=== PATIENT | male | born 1995 | race Two or more races ===

== ENCOUNTER 2024-05-21 15:13 | Outpatient (AMB) | payer OTHER, SELFPAY ==
--- NOTE | 2024-05-21 13:05 | A.OFFVIS_ITS ---
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 Assembly Supervisor Required: No Accompanied by: Significant Other Allergies No Known Allergies [No Known Allergies*] Allergy (Unverified 12/30/19 19:42) Medication List - Last Reconciled 05/21/24 by Lisa Stone NP acetone (urine) test (Ketone Urine Test strips) prn nausea, vomiting, illness glucose over 250 blood sugar diagnostic (FreeStyle Lite Strips) As directed qid prn sensor failure, confirm glucose blood-glucose meter (FreeStyle Lite Meter kit) As directed blood-glucose sensor (Dexcom G7 Sensor device) As directed insulin degludec (Tresiba FlexTouch U-200 insulin) 42 units (0.21 mL) subcut BEDTIME 30 days insulin lispro 9 units subcut BEDTIME lancets (FreeStyle Lancets) 4 times a day prn sensor failure or to confirm glucose dispense as 32 gauge if avail HPI Comments Details: 29 YO male who is seen in consultation for T1DM at the request of his partner who is an sign language interpreter [place] [facility] [place]. Hgb A1C 05/21/24 10.9% 06/10/23 9.6% Initially diagnosed with T1DM approx at age [age] years old through the ER Was previously followed by [facility] He just started on a Dexcom G7 sensor SENSOR AVERAGE FOR THE LAST 14 DAYS 256 He has a clear pattern of starting off at midnight in the 250s and drops down to 90 by the morning, after breakfast he gradually goes up throughout the day Was initially started on treatment with insulin Current regimen: Lantus 40 units Humalog 9 units 4-5 times daily with meals Reports low sugars: never Family history of T2DM in father Due for eye exam Has recent neuropathy : tingling in both feet last foot exam today does not see podiatry No nephropathy, on doron-inhibitor no urine micro avail 06/10/23 eGFR 123 No lipid profile available Diet: Hasn't seen fitness and wellness manager Weight: stable No diabetes education. PFSH Surgical History (Updated 05/21/24 @ 15:24 by ALEN Ledezma) Hx of tooth extraction Family History (Updated 05/21/24 @ 15:25 by ALEN Ledezma) Mother No problems noted. Father No problems noted. Maternal Aunt History of diabetes mellitus Maternal Grandmother No problems noted. Social History (Updated 05/21/24 @ 15:26 by ALEN Ledezma) Alcohol intake: current Alcohol intake frequency: does not drink Patient Tobacco Use Status: Never used Tobacco Physical Exam Vital Signs: Last Vital Signs Pulse 72 05/21/24 15:16 BP 118/70 05/21/24 15:16 BMI result Body Mass Index 32.4 Absence of Cushingoid features. Absence of acromegalic features. Neck exam reveals nl size thyroid about 15 gms. No thyroid nodules palpable. No carotid bruits present. Lungs CTA. Heart S1 S2, Reg R/R. No M/R/ G. Skin exam reveals absence of vitiligo or acanthosis nigricans. Abdominal exam reveals Soft NT/ND with NA BS. No organomegaly present. Const Other: Absence of Cushingoid features. Absence of acromegalic features. Neck exam reveals nl size thyroid about 15 gms. No thyroid nodules palpable. Heart S1 S2, Reg R/R. No M/R G. Skin exam reveals absence of vitiligo or acanthosis nigricans. Visual exam of foot performed. No ulcerations or open lesions. No inter digit maceration or fissuring. No onychomycosis, no callouses. Sensation intact to monofilament exam. Vibratory sensation is normal with 128 Hz tuning fork. goood cap refill pulses + Neck Other: . Extrem Other: Visual exam of foot performed. No ulcerations or open lesions. No onchomycosis, no callouses.Pulses 2 + distally Sensation intact to monofilament exam. Vibratory sensation sensed is intact with 128 Hz tuning fork Results AMB Hemoglobin A1c AMB Hemoglobin A1c 10.9 % Last Edit by ALEN Ledezma on 05/21/24 15:3 9 Results Reviewed Results Reviewed: Laboratory Last Values Glucose (Clinic) 235 mg/dL (60-115) H 05/21/24 15:30 Hgb A1c (Clinic) 10.9 % (4.0-6.0) H 05/21/24 15:33 Assessment & Plan Assessment & Plan (1) Diabetes mellitus: Code(s): E11.9 - Type 2 diabetes mellitus without complications Plan: 29-year-old diabetic diagnosed in his teens with a history of poor diabetic control on basal bolus insulin. A1c in the office today over 10%. Sensor download shows a clear pattern of starting at midnight in the 250s and gradually going down to 90 by the morning and rising afterwards indicating that Lantus is not lasting 24 hours for this patient. We will change to Tresiba 42 units which should smooth out his numbers. Increase Humalog to 10 units which he takes 4-5 times per day. As we are able to increase the Tresiba we should be able to decrease the Humalog to just mealtime. He will follow up with Ghada Akers RD and Che ALEXANDER. He may be a good candidate to go on a islet insulin pump. We briefly discussed the differences between islet and Omnipod Patient verbalized an understanding of everything we discussed today but was fairly quiet. Glass Che ALEXANDER to assess whether she feels he can handle going on an insulin pump. He did express the fact that he would prefer not to enter carbohydrate g. The patient had an opportunity to ask questions regarding treatment plan. The patient expressed understanding and agreement with the above treatment plan. The patient is aware they should contact our office by phone for worsening glucose readings or for any low blood sugars which may warrant a change in diabetes medication. Compliance is encouraged with medications and any followup testing/consults which may have been ordered. Plan The patient was counseled to achieve a target A1C of 7% (154 avg). Fasting blood sugars should be 90-130 in the morning and less than 180 two hours after meals. Reviewed the relationship between poor diabetic control and the development of complications. Orders: Orders Islet Cell Antibody Scrn/Titer Today E11.9 - Type 2 diabetes mellitus without complications C Peptide Today E11.9 - Type 2 diabetes mellitus without complications Glutamic acid decarboxylase Ab Today E11.9 - Type 2 diabetes mellitus without complications Microalbumin, Random (w Creat) Today E11.9 - Type 2 diabetes mellitus without complications Lipid Panel Today E11.9 - Type 2 diabetes mellitus without complications Creatinine Urine Today E11.9 - Type 2 diabetes mellitus without complications AMB Hemoglobin A1c Today E10.9 - Type 1 diabetes mellitus without complications Medications: New insulin degludec (Tresiba FlexTouch U-200 insulin) 42 units (0.21 mL) subcut BEDTIME 9 mL 6RF 30 days acetone (urine) test (Ketone Urine Test strips) prn nausea, vomiting, illness glucose over 250 25 ea 1RF blood sugar diagnostic (FreeStyle Lite Strips) As directed qid prn sensor failure, confirm glucose 100 ea 2RF lancets (FreeStyle Lancets) 4 times a day prn sensor failure or to confirm glucose dispense as 32 gauge if avail 100 ea 1RF blood-glucose meter (FreeStyle Lite Meter kit) As directed 1 ea 0RF E10.9 - Type 1 diabetes mellitus without complications Coding Level of Care Code New Pt Level 5 (94694) Complex EM visit Add On G2211 Diagnoses Diabetes mellitus E11.9 Time Spent (min) 50 Comment Time spent reviewing labs/provider notes, face to face, chart doc
[2024-05-21 15:16] VITALS: BP 118/70; PULSE 72; BMI 32.4
[2024-05-21 15:34] LABS: Glucose, Whole Blood 235 mg/dL (60-115)
== END 2024-05-21 18:03 | disposition home or self-care (01) ==
PROVIDERS: PCP Family Medicine; Visit Provider Nurse Practitioner Adult Health
DX: E10.9 Type 1 diabetes mellitus without complications (principal); E11.9 Type 2 diabetes mellitus without complications
CPT/HCPCS: 99204; G2211

== ENCOUNTER → 2024-05-21 15:13 | Outpatient (BNVA) | payer OTHER, SELFPAY | PROVIDERS: PCP Family Medicine; Visit Provider Nurse Practitioner Adult Health | DX: E10.9 Type 1 diabetes mellitus without complications (principal); Z79.4 Long term (current) use of insulin | CPT/HCPCS: 82947; 83036; 99202 ==

== ENCOUNTER 2024-07-30 14:55 | Outpatient (AMB) | payer MEDICAID, SELFPAY ==
--- NOTE | 2024-07-30 13:46 | A.OFFVIS_ITS ---
Vital Signs 07/30/24 15:01 Height 5 ft 8 in Weight 220 lb 7.396 oz BMI 33.5 BP 100/80 Blood Pressure Location Rt brachial Position Sitting Pulse 76 Pulse Source Pulse Oximeter Pulse Oximetry (%) 99 Oxygen Delivery Method Room Air Intake Visit Reasons: T1DM Intake Note: Patient presents today for a follow-up on Type 1 Diabetes Mellitus: Last Diabetic eye exam was on: DUE? 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 Hgb A1C 05/21/24 10.9% 06/10/23 9.6%. He was seen as an initial consult 2 months ago and changed from Lantus insulin to Tresiba insulin to smooth out his numbers. Initially diagnosed with T1DM approx at age [age] years old through the ER Was previously followed by [facility] average glucose: 195 14 day continuous glucose sensor report reviewed Glucose Management indicator 8.0 % Time CGM active 97 % TIme in ranges: 25 % very high (above 250) 30 % high (181-250) 43 % in range (70-180] 2 % low (69-55) Less than 1 % very low (below 54) Interpretation of CGMS running overall 40 points above target Was initially started on treatment with insulin Current regimen: Tresiba 42 units Humalog 10 units 4-5 times daily with meals Reports low sugars: never Family history of T2DM in father Due for eye exam Has recent neuropathy : tingling in both feet last foot exam today does not see podiatry No nephropathy, on doron-inhibitor no urine micro avail 06/10/23 eGFR 123 No lipid profile available Diet: Hasn't seen still runner Weight: stable No diabetes education. PFSH Medical History (Updated 08/10/24 @ 15:12 by Lisa Stone NP) Type 1 diabetes mellitus Diabetes Surgical History Hx of tooth extraction Family History Mother No problems noted. Father No problems noted. Maternal Aunt History of diabetes mellitus Maternal Grandmother No problems noted. Social History Alcohol intake: current Alcohol intake frequency: does not drink Patient Tobacco Use Status: Never used Tobacco Physical Exam Vital Signs: Last Vital Signs Pulse 76 07/30/24 15:01 BP 100/80 07/30/24 15:01 Pulse Ox 99 07/30/24 15:01 Oxygen Delivery Method Room Air 07/30/24 15:01 BMI result Body Mass Index 33.5 Const Other: Absence of Cushingoid features. Absence of acromegalic features. Neck exam reveals nl size thyroid about 15 gms. No thyroid nodules palpable. Heart S1 S2, Reg R/R. No M/R G. Skin exam reveals absence of vitiligo or acanthosis nigricans. Visual exam of foot performed. No ulcerations or open lesions. No inter digit maceration or fissuring. No onychomycosis, no callouses. Sensation intact to monofilament exam. Vibratory sensation is normal with 128 Hz tuning fork. Results Reviewed Results Reviewed: Laboratory Last Values Glucose (Clinic) 187 mg/dL (60-115) H 07/30/24 15:07 Assessment & Plan Assessment & Plan (1) Type 1 diabetes mellitus: Code(s): E10.9 - Type 1 diabetes mellitus without complications Category: Medical Plan: Basal bolus insulin was adjusted The patient had an opportunity to ask questions regarding treatment plan. The patient expressed understanding and agreement with the above treatment plan. The patient is aware they should contact our office by phone for worsening glucose readings or for any low blood sugars which may warrant a change in diabetes medication. Compliance is encouraged with medications and any followup testing/consults which may have been ordered. Medications: New insulin lispro before meals 14 units (0.14 mL) subcut TID 15 mL 11RF NS Changed From insulin degludec 42 units (0.21 mL) subcut BEDTIME 30 days 9 mL 6RF To insulin degludec (Tresiba FlexTouch U-200 insulin) 38 units (0.19 mL) subcut BEDTIME 6 mL 6RF 30 days Coding Level of Care Code Est Pt Level 4 (82986) Complex EM visit Add On G2211 Diagnoses Type 1 diabetes mellitus E10.9
[2024-07-30 15:01] VITALS: BP 100/80; PULSE 76; O2SAT 99; BMI 33.5
[2024-07-30 15:13] LABS: Glucose, Whole Blood 187 mg/dL (60-115)
== END 2024-07-30 15:32 | disposition home or self-care (01) ==
PROVIDERS: PCP Family Medicine; Visit Provider Nurse Practitioner Adult Health
DX: E10.9 Type 1 diabetes mellitus without complications (principal)
CPT/HCPCS: 99214

== ENCOUNTER → 2024-07-30 14:55 | Outpatient (BNVA) | payer OTHER, SELFPAY | PROVIDERS: PCP Family Medicine; Visit Provider Nurse Practitioner Adult Health | DX: Z46.81 Encounter for fitting and adjustment of insulin pump (principal); E10.9 Type 1 diabetes mellitus without complications; Z79.4 Long term (current) use of insulin | CPT/HCPCS: 82947; 99212 ==

== ENCOUNTER 2024-08-13 08:36 | Outpatient (REF) | payer MEDICAID, SELFPAY ==
[2024-08-13 10:13] LABS: Cholesterol 174 mg/dL (<200); HDL Cholesterol 56 mg/dL (>40); LDL Cholesterol Calculated 83 mg/dL (<100); Triglycerides 176 mg/dL (<150)
[2024-08-13 10:37] LABS: Creatinine Urine 188.34 mg/dL; Microalbum/Creatinine Ratio Ur 3.7 ug/mg cr (<30)
[2024-08-14 05:44] LABS: C Peptide 0.68 ng/mL (0.80-3.85)
[2024-08-17 20:22] LABS: Glutamic acid decarboxylase Ab 90 IU/mL (<5)
[2024-08-18 08:04] LABS: Islet Cell Antibody Screen NEGATIVE (NEGATIVE)
== END 2024-08-13 08:37 | disposition home or self-care (01) ==
LOC: HO.LAB 08:36
PROVIDERS: PCP Family Medicine; Visit Provider Nurse Practitioner Adult Health
DX: E11.9 Type 2 diabetes mellitus without complications (principal)
CPT/HCPCS: 36415; 80061; 82043; 82570; 84681; 86341

== ENCOUNTER 2024-08-17 13:54 | Outpatient (AMB) | payer OTHER, SELFPAY ==
--- NOTE | 2024-08-17 14:04 | A.OFFVIS_ITS ---
VS Expanded 08/17/24 14:05 08/17/24 14:19 Height 5 ft 8 in 5 ft 8 in Weight 239 lb 3.225 oz 239 lb BMI 36.4 36.3 Intake Visit Reasons: T1DM Allergies No Known Allergies [No Known Allergies*] Allergy (Verified 07/30/24 15:02) Nutrition Presentation Details: Pt presents for MNT for T1DM Pt reports increased appetite, acknowledges increase sugar/carb intake wants to make dietary modifications needs review in reading food labels and definition of macronutrients Breakfast: cereal with milk dinner/lunch: rice/chicken meal snack :chips and similar bedtime: bowl of sugary cereal with whole milk beverages: water, diet soda Reason for consult: initial DM maintenance BS Monitoring Most Recent Diabetes Results: Microalb/Creat Ratio 3.7 ug/mg cr (<30) 08/13/24 Cholesterol 174 mg/dL (<200) 08/13/24 HDL Cholesterol 56 mg/dL (>40) 08/13/24 Triglycerides 176 mg/dL (<150) H 08/13/24 Creatinine 1.03 MG/DL (0.5-1.4) 10/21/18 Blood Urea Nitrogen 12 MG/DL (9-16) 10/21/18 Sodium 139 MMOL/L (135-145) 10/21/18 Potassium 4.0 MMOL/L (3.3-5.1) 10/21/18 Chloride 102 MMOL/L (96-108) 10/21/18 AST 15 U/L (5-37) 10/21/18 ALT 12 U/L (0-40) 10/21/18 Total Protein 7.3 G/DL (6.5-8.0) 10/21/18 Albumin 4.6 G/DL (3.5-5.0) 10/21/18 JAR-Pvcpwje-Ys.Jeor Equation Height: 5 ft 8 in Weight: 239 lb Resting Metabolic Rate: 2029.74 Calculated Activity Level: Sedentary Calories Needed to Maintain Weight: 2435.69 Diagnosis Nutrition problem #1: altered nutrition labs As related to (etiology) #1: diagnosis As evidenced by (sign/symptom) #1: knowledge deficit of diet Monitoring/Goals Nutrition problem monitoring: level of knowledge/skill and glucose, fasting [facility] Medical History (Updated 08/10/24 @ 15:12 by Lisa Stone NP) Type 1 diabetes mellitus Diabetes Surgical History Hx of tooth extraction Family History Mother No problems noted. Father No problems noted. Maternal Aunt History of diabetes mellitus Maternal Grandmother No problems noted. Social History Alcohol intake: current Alcohol intake frequency: does not drink Patient Tobacco Use Status: Never used Tobacco Assessment & Plan Assessment & Plan (1) Type 1 diabetes mellitus: Code(s): E10.9 - Type 1 diabetes mellitus without complications Category: Medical Plan: Wt: 109 Kg ( 09/05 ) Est kcal needs as per MSJ: 2300 (40% carb, 30% protein/fat) Est fluid needs as per 25-30 ml/d: 3300 Est prot per day as per 1 g/kg bw: 110 Recommend fiber intake : 8-10 g per day and gradually increase to 25-28 g per day for women and 35-38 g for men or as tolerated Recommend sodium intake per day : less than 2000 mg Educated patient on: ( R = reviewed V = verbalizes understanding N/R = needs review N/A = not applicable * Food sources of carbohydrate, adequate serving sizes and its role in various health conditions: R * Differences between complex carbohydrates a simple carbohydrates, role of fiber in diet: R * Lean protein sources of foods: R * Differences between types of fats and role in diet (mono on saturated fat fatty acids, saturated fatty acids, trans fats): R V N/R * Food sources of sodium in salt and healthy modifications for heart health in kidney health: R V R/V * Vitamins and minerals: R V N/R * Healthy plate method concept: R * Physical activity: Benefits a precaution: R V N/R * Hypoglycemia protocol (rule of 15): R V N/R * Dietary prevention of Hyperglycemia: R Patient Instructions: Reduce total carbohydrate at bedtime to 45 g carbs - see ideas consisting of less than 45 g carb read labels , serving size and total carbs provided and discussed planning healthy meals pamphlet Coding Level of Care Code Nutr Indiv Intake (60642) Diagnoses Type 1 diabetes mellitus E10.9 Time Spent (min) 30
[2024-08-17 14:05] VITALS: BMI 36.4
[2024-08-17 14:19] VITALS: BMI 36.3
== END 2024-08-17 15:44 | disposition home or self-care (01) ==
LOC: HO.ENCR 13:55
PROVIDERS: PCP Family Medicine; Visit Provider Dietitian, Registered
DX: E10.9 Type 1 diabetes mellitus without complications (principal)

== ENCOUNTER 2024-08-17 13:54 | Outpatient (AMB) | payer MEDICAID, SELFPAY ==
--- NOTE | 2024-08-17 14:54 | MHC.AMDMED ---
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 Name: Laury [phone] Accompanied by: Self / Same As Patient Allergies No Known Allergies [No Known Allergies*] Allergy (Verified 07/30/24 15:02) HPI Comprehensive Diabetes Asmnt Most Recent Diabetes Results: Microalb/Creat Ratio 3.7 ug/mg cr (<30) 08/13/24 Cholesterol 174 mg/dL (<200) 08/13/24 HDL Cholesterol 56 mg/dL (>40) 08/13/24 Triglycerides 176 mg/dL (<150) H 08/13/24 Creatinine 1.03 MG/DL (0.5-1.4) 10/21/18 Blood Urea Nitrogen 12 MG/DL (9-16) 10/21/18 Sodium 139 MMOL/L (135-145) 10/21/18 Potassium 4.0 MMOL/L (3.3-5.1) 10/21/18 Chloride 102 MMOL/L (96-108) 10/21/18 AST 15 U/L (5-37) 10/21/18 ALT 12 U/L (0-40) 10/21/18 Total Protein 7.3 G/DL (6.5-8.0) 10/21/18 Albumin 4.6 G/DL (3.5-5.0) 10/21/18 [facility] Medical History (Updated 08/10/24 @ 15:12 by Lisa Stone NP) Type 1 diabetes mellitus Diabetes Surgical History Hx of tooth extraction Family History Mother No problems noted. Father No problems noted. Maternal Aunt History of diabetes mellitus Maternal Grandmother No problems noted. Social History Alcohol intake: current Alcohol intake frequency: does not drink Patient Tobacco Use Status: Never used Tobacco Assessment & Plan Assessment & Plan (1) Type 1 diabetes mellitus: Code(s): E10.9 - Type 1 diabetes mellitus without complications Plan: Pump Assessment: Type of DM: Type 1 Dx at age: 16y/o Previous DKA:At Dx Current Insulin Rx: MDI Patient takes insulin as prescribed:yes Patient? checks BG Dexcom G7 Downloaded meter today? yes Patient? reports glycemic control as: poor Most recent Hgb A1C: 10.9% Frequency of low BG: a few times a week Low BG treatment: Skittles Frequency of high BG: daily Does patient check Ketones? no Has pt been on a pump in the past? no Reviewed insulin pump basics today with Patient. Explained pros and cons of insulin pumps. Showed pt various pumps, infusion sets, and cgms currently available. Reviewed need to wear pump 24/ and need to change infusion set every 3 days. Also stressed importance of frequent BG checks, 4x daily minimum or use pump that is integrated with CGM.? TDD:116 units Patient demonstrated motivation for continued insulin pump education and understands the need to complete education prior to starting insulin pump for best outcome. Will follow up for continued education. Patient is considering T slim, iLet or Omnipod. Reviewed the following information regarding ketone testing: Patient given ketone testing handout in [employer] [facility]? for High Blood Sugar and When to Test for Ketones Hyperglycemia is the technical term for high blood glucose (blood sugar). High blood sugar happens when the body has too little insulin or when the body can't use insulin properly. What causes hyperglycemia? A number of things can cause hyperglycemia: If you have type 1, you may not have given yourself enough insulin. ? If you have type 2, your body may have enough insulin, but it is not as effective as it should be. You ate more than planned or exercised less than planned. You have stress from an illness, such as a cold or flu. You have other stress, such as family conflicts or school or dating problems. How to lower your blood sugar level. ? Take medications as directed by physician. ? Drink extra water or noncaffeinated, nonsugared drinks to prevented hydration. ? Exercise if you are not sick However, if your blood sugar is above 250 mg/dl, check your urine for ketones. If you have ketones, do not exercise Exercising when ketones are present may make your blood sugar level go even higher. You'll need to work with your doctor to find the safest way for you to lower your blood sugar level. Regularly check blood sugar or urine for sugar and acetone during illness. Diabetic ketoacidosis (DKA) Is serious condition that can lead to diabetic coma (passing out for a long time) or even . When your cells don't get the glucose they need for energy, your body begins to burn fat for energy, which produces ketones. Ketones are chemicals that the body creates when it breaks down fat to use for energy. The body does this when it doesn?t have enough insulin to use glucose, the body?s normal source of energy. When ketones build up in the blood, they make it more acidic. They are a warning sign that your diabetes is out of control or that you are getting sick. Symptoms of Diabetic Ketoacidosis (DKA) ? DKA usually develops slowly. But when vomiting occurs, this life-threatening condition can develop in a few hours. Early symptoms include the following: ? Thirst or a very dry mouth ? Frequent urination ? High blood glucose (blood sugar) levels ? High levels of ketones in the urine ? Then, other symptoms appear: ? Constantly feeling tired ? Dry or flushed skin ? Nausea, vomiting, or abdominal pain ? (Vomiting can be caused by many illnesses, not just ketoacidosis. If vomiting continues for more than 2 hours, contact your health care provider.) ? Difficulty breathing ? Fruity odor on breath ? A hard time paying attention, or confusion When should you test for ketones? It is advisable to check for ketones under the following conditions when: Your blood glucose is higher than 250mg/dl. Feeling nauseated, throwing up, or have pains in your abdominal region. Have a cold or flu. Have general body fatigue. Feel thirsty or have a very dry mouth. Have flushed skin. Have a fruity breath or a hard time breathing. You feel perplexed or in fog. How to Test Urine for Ketones You can detect ketones with a simple urine test using a test strip, similar to a blood testing strip. Ask your health care provider when and how you should test for ketones. Many experts advise to check your urine for ketones when your blood glucose is more than 250 mg/dl. When you are ill (when you have a cold or the flu, for example), check for ketones every 4 to 6 hours. And check every 4 to 6 hours when your blood sugar is more than 250 mg/dl. Also, check for ketones when you have any symptoms of DKA. How to lower your blood sugar level. ? Take medications as directed by physician. ? Drink extra water or noncaffeinated, nonsugared drinks to prevented hydration. ? Exercise if you are not sick However, if your blood sugar is above 250 mg/dl, check your urine for ketones. If you have ketones, do not exercise Exercising when ketones are present may make your blood sugar level go even higher. You'll need to work with your doctor to find the safest way for you to lower your blood sugar level. Regularly check blood sugar or urine for sugar and acetone during illness Portions of this note were created using voice recognition software, please excuse any words or phrases that may have been misinterpreted. Coding Level of Care Code Est Pt Level 1 (43973) Diagnoses Type 1 diabetes mellitus E10.9
== END 2024-08-17 15:43 | disposition home or self-care (01) ==
LOC: HO.ENCR 13:55
PROVIDERS: PCP Family Medicine; Visit Provider Registered Nurse Diabetes Educator
DX: E10.9 Type 1 diabetes mellitus without complications (principal)

== ENCOUNTER → 2024-08-17 13:54 | Outpatient (BNVA) | payer MEDICAID, SELFPAY | PROVIDERS: PCP Family Medicine; Visit Provider Registered Nurse Diabetes Educator | DX: E10.9 Type 1 diabetes mellitus without complications (principal) | CPT/HCPCS: 97802; 99211 ==

== ENCOUNTER 2024-09-15 14:22 | Outpatient (AMB) | payer MEDICAID, SELFPAY ==
--- NOTE | 2024-09-15 12:17 | A.OFFVIS_ITS ---
Vital Signs 09/15/24 14:30 Height 5 ft 8 in Weight 235 lb 14.314 oz BMI 35.9 BP 116/70 Blood Pressure Location Rt brachial Position Sitting Pulse 76 Pulse Source Pulse Oximeter Pulse Oximetry (%) 96 Oxygen Delivery Method Room Air Intake Visit Reasons: T1DM Intake Note: Patient presents today for a follow-up on Type 1 Diabetes Mellitus: Last Diabetic eye exam was on: DUE Last Podiatry exam was on: Patient does not see a Bat Boy/Girl Most recent HbA1c: 7.7%, 09/15/2024 Random Glucose- 159 mg/dL, Today Room Service Food Server Required: No Accompanied by: Self / Same As Patient Allergies No Known Allergies [No Known Allergies*] Allergy (Verified 09/15/24 14:29) HPI Comments Details: 29 YO male who is seen in f/u for T1DM. Hgb A1C 09/15/24 %,05/21/24 10.9% 06/10/23 9.6%. He was seen as an initial consult May 2024 and he was changed from Lantus insulin to Tresiba insulin to smooth out his numbers. He has met with Che ALEXANDER to discuss going on a pump. He is interested in Omnipod. He has had 1 session with the Ghada Akers RD. He needs additional pre pump training prior to ordering pump Labs 08/13/2024 confirmed type 1 C-peptide 0.68 Gada 90 neg islet antibody His partner Raquel is an septic cleaner at [facility] [place] Initially diagnosed with T1DM approx at age [age] years old through the ER Was [facility] Was initially started on treatment with insulin Current regimen: Tresiba 45 units Humalog 11 units three times daily with meals Dexcom average glucose: 185 14 day continuous glucose monitor report reviewed Glucose Managment indicator 7.7 % TIme in ranges: 17 % very high (above 250) 36 % high ?(181-250) 77 % in range ?(70-180] 1 % low (69-55) Less than 1 % ?very low (below 54) Interpretation ; some readings around 03:00 and 06:00 just below 70, some postprandial highs after lunch and supper Reports low sugars: in the am Family history of T2DM in father Due for eye exam: given referral today Has recent neuropathy : tingling in both feet last foot exam today does not see podiatry No nephropathy, on doron-inhibitor no urine micro avail 06/10/23 eGFR 123 No lipid profile available Diet: Hasn't seen telecommunications repairer Weight: stable No diabetes education. [facility] Medical History Type 1 diabetes mellitus Diabetes Surgical History Hx of tooth extraction Family History Mother No problems noted. Father No problems noted. Maternal Aunt History of diabetes mellitus Maternal Grandmother No problems noted. Social History Alcohol intake: current Alcohol intake frequency: does not drink Patient Tobacco Use Status: Never used Tobacco Physical Exam Vital Signs: Last Vital Signs Pulse 76 09/15/24 14:30 BP 116/70 09/15/24 14:30 Pulse Ox 96 09/15/24 14:30 Oxygen Delivery Method Room Air 09/15/24 14:30 BMI result Body Mass Index 35.9 HEENT Other: Absence of Cushingoid features. Absence of acromegalic features. Neck exam reveals nl size thyroid about 15 gms. No thyroid nodules palpable. Heart S1 S2, Reg R/R. No M/R G. Skin exam reveals absence of vitiligo or acanthosis nigricans. No edema Visual exam of foot performed. No ulcerations or open lesions. No inter digit maceration or fissuring. No onychomycosis, no callouses. Sensation intact to monofilament exam. Vibratory sensation is normal with 128 Hz tuning fork. Pulses positive distally Office Procedures Glucose Monitoring Details Details: see hpi 82609 - Glucose monitoring, continuous-physician I&R Procedure code (CPT) selection complete Results AMB Hemoglobin A1c AMB Hemoglobin A1c 7.7 % Last Edit by ALEN Ledezma on 09/15/24 14:45 Results Reviewed Results Reviewed: Laboratory Last Values Glucose (Clinic) 159 mg/dL (60-115) H 09/15/24 14:35 Hgb A1c (Clinic) 7.7 % (4.0-6.0) H 09/15/24 14:44 Assessment & Plan Assessment & Plan (1) Type 1 diabetes mellitus: Code(s): E10.9 - Type 1 diabetes mellitus without complications Category: Medical Plan: 29-year-old with type 1 diabetes recently confirmed as type 1 with low C-peptide and positive gada. A1c has decreased from 10.9-7.7%. Sensor shows some lows around 3 or 6 in the a.m., postprandial highs slight after lunch and supper Decrease Tresiba to 42 units Humalog Breakfast 11 units Lunch 13 units Supper 13 units He will meet with the day educator for further training towards going on an Omnipod pump. He was given a referral today for ophthalmology The patient had an opportunity to ask questions regarding treatment plan. The patient expressed understanding and agreement with the above treatment plan. The patient is aware they should contact our office by phone for worsening glucose readings or for any low blood sugars which may warrant a change in diabetes medication. Compliance is encouraged with medications and any followup testing/consults which may have been ordered. Orders: Orders Basic Metabolic Panel Today E10.9 - Type 1 diabetes mellitus without complications Lipid Panel Today E10.9 - Type 1 diabetes mellitus without complications Microalbumin, Random (w Creat) Today E10.9 - Type 1 diabetes mellitus without complications C Peptide Today E10.9 - Type 1 diabetes mellitus without complications AMB Hemoglobin A1c Today E10.9 - Type 1 diabetes mellitus without complications AMB Glucose Monitoring Today E10.9 - Type 1 diabetes mellitus without complications Referrals Ophthalmology Referral E10.9 - Type 1 diabetes mellitus without complications Coding Level of Care Code Est Pt Level 4 (07715) Complex EM visit Add On G2211 Diagnoses Type 1 diabetes mellitus E10.9 CPT Codes Details - CPT: 63676 - Glucose monitoring, continuous-physician I&R ([id number]) Time Spent (min) 30 Comment Time spent reviewing labs/provider notes, face to face, chart doc
[2024-09-15 14:30] VITALS: BP 116/70; PULSE 76; O2SAT 96; BMI 35.9
[2024-09-15 14:39] LABS: Glucose, Whole Blood 159 mg/dL (60-115)
== END 2024-09-15 14:55 | disposition home or self-care (01) ==
LOC: HO.ENCR 14:23
PROVIDERS: PCP Family Medicine; Visit Provider Nurse Practitioner Adult Health
DX: E10.9 Type 1 diabetes mellitus without complications (principal)
CPT/HCPCS: 95251; 99214

== ENCOUNTER → 2024-09-15 14:22 | Outpatient (BNVA) | payer MEDICAID, SELFPAY | PROVIDERS: PCP Family Medicine; Visit Provider Nurse Practitioner Adult Health | DX: E10.9 Type 1 diabetes mellitus without complications (principal) | CPT/HCPCS: 82947; 83036; 99212 ==

== ENCOUNTER 2024-09-16 14:50 | Outpatient (AMB) | payer MEDICAID, SELFPAY ==
--- NOTE | 2024-09-16 15:23 | MHC.AMDMED ---
Intake Intake Visit Reasons: 60 min Conductor Yard Required: Yes Conductor Yard Name: [id number] Accompanied by: Self / Same As Patient Allergies No Known Allergies [No Known Allergies*] Allergy (Verified 09/15/24 14:29) HPI Comprehensive Diabetes Asmnt Most Recent Diabetes Results: Microalb/Creat Ratio 3.7 ug/mg cr (<30) 08/13/24 Cholesterol 174 mg/dL (<200) 08/13/24 HDL Cholesterol 56 mg/dL (>40) 08/13/24 Triglycerides 176 mg/dL (<150) H 08/13/24 Creatinine 1.03 MG/DL (0.5-1.4) 10/21/18 Blood Urea Nitrogen 12 MG/DL (9-16) 10/21/18 Sodium 139 MMOL/L (135-145) 10/21/18 Potassium 4.0 MMOL/L (3.3-5.1) 10/21/18 Chloride 102 MMOL/L (96-108) 10/21/18 AST 15 U/L (5-37) 10/21/18 ALT 12 U/L (0-40) 10/21/18 Total Protein 7.3 G/DL (6.5-8.0) 10/21/18 Albumin 4.6 G/DL (3.5-5.0) 10/21/18 [facility] Medical History Type 1 diabetes mellitus Diabetes Surgical History Hx of tooth extraction Family History Mother No problems noted. Father No problems noted. Maternal Aunt History of diabetes mellitus Maternal Grandmother No problems noted. Social History Alcohol intake: current Alcohol intake frequency: does not drink Patient Tobacco Use Status: Never used Tobacco Assessment & Plan Assessment & Plan (1) Type 1 diabetes mellitus: Code(s): E10.9 - Type 1 diabetes mellitus without complications Plan: Carb Counting Basic Patient presents for appointment carbohydrate counting education. Reviewed the basic principles of carbohydrate counting.? Insulin to carb ratio, and insulin sensitivity factor calculated based on rule of 450 for insulin to carb ratio, and rule of 1500 for insulin sensitivity factor. Instructed patient on the importance of accurate calculation of the amount of carbs per meal for optimal glucose control Reviewed how to calculate mealtime bolus with insulin to carb ratio Reviewed how to calculate correction dose with insulin sensitivity factor Patient's TDD estimate 116 units Insulin to Carbohydrate ratio:1:4 Correction factor:1:13 Target 140 mg/dL Diet Recall: Lunch:[place] 2 pieces of bread and water = 30 gm Dinner: 1.5 cups of rice with pork = 70 gms Patient given healthy plate handout, for resource for carbohydrate counting Encourage patient to fill out food logs, estimating carbohydrates at meals, noting glucose number prior to meal, and how many units of insulin taken prior to meals Pt able to calculated needed insulin based on estimated carbohydrate content Set up bolus calc yecenia on patient's smart phone Instructed patient that there may need to be adjustment to insulin to carb ratio and sensitivity factor based on blood glucose trends. At follow-up appointment we will order Omnipod 5 Portions of this note were created using voice recognition software, please excuse any words or phrases that may have been misinterpreted. Patient Instructions: Follow-up with cherry dipper in 2 weeks Coding Level of Care Code Est Pt Level 1 (47382) Diagnoses Type 1 diabetes mellitus E10.9
== END 2024-09-16 15:26 | disposition home or self-care (01) ==
LOC: HO.ENCR 14:50
PROVIDERS: PCP Student in an Organized Health Care Education/Training Program; Visit Provider Registered Nurse Diabetes Educator
DX: E10.9 Type 1 diabetes mellitus without complications (principal)

== ENCOUNTER → 2024-09-16 14:50 | Outpatient (BNVA) | payer MEDICAID, SELFPAY | PROVIDERS: PCP Family Medicine; Visit Provider Registered Nurse Diabetes Educator | DX: E10.9 Type 1 diabetes mellitus without complications (principal) | CPT/HCPCS: 99211 ==

== ENCOUNTER 2024-11-04 08:00 | Outpatient (AMB) | payer MEDICAID, SELFPAY ==
--- NOTE | 2024-11-04 08:33 | A.OFFVIS_ITS ---
Intake Intake Visit Reasons: 30 min Edge Baster Required: Yes Edge Baster Language: Hvac Controls Technician Name: Raquel [facility] Accompanied by: Other Relationship Allergies No Known Allergies (No Known Allergies*) Allergy (Verified 09/15/24 14:29) [facility] Medical History Type 1 diabetes mellitus Diabetes Surgical History Hx of tooth extraction Family History Mother No problems noted. Father No problems noted. Maternal Aunt History of diabetes mellitus Maternal Grandmother No problems noted. Social History Alcohol intake: current Alcohol intake frequency: does not drink Patient Tobacco Use Status: Never used Tobacco Assessment & Plan Assessment & Plan (1) Type 1 diabetes mellitus: Code(s): E10.9 - Type 1 diabetes mellitus without complications Plan: Patient presents for pre-pump training . Patient returned food logs from carb counting appointment. Patient reports at this visit that he would prefer to use pump that does not require carb counting. Discussed option of using iLet insulin pumps instead of Omnipod 5 The following topics were reviewed today: Patient instructed to only announce meals that have carbohydrates. If you forget to announce meals and it is more than 20 minute after meal do not announce, this can lead to hypoglycemia Instructed patient not to treat hypoglycemia with more than 10 g of fast acting carbohydrate, when using iLet insulin pump For the 1st 7 days: Eat meals that have usual amount of carbs for you in announce them as usual Wait at least 4 hours between eating meals with carbs and announcing again If you are eating between meals, low carb snacks are the best option. Always have extra supplies: CGM sensor Supply to refill your insulin cartridge and replace your infusion set Blood glucose and ketone testing supplies Treatment for low blood glucose BG run mode: You will go into BG mode if not receiving CGM glucose readings You will be required to enter BG into pump every 4 hours after 72 hours insulin delivery will stop Reviewed Safety information: Importance of a backup plan, for manual injections, proper prescriptions and emergency supplies ketone strips, and rules for testing for ketones Patient understands the basic concepts of pump therapy, how to give insulin for meals and snacks, how to troubleshoot for hyper and hypoglycemia. Portions of this note were created using voice recognition software, please exc use any words or phrases that may have been misinterpreted. Patient Instructions: Follow-up with Dr. Olvera on 11/09/2024 Coding Level of Care Code Est Pt Level 1 (11109) Diagnoses Type 1 diabetes mellitus E10.9
== END 2024-11-04 08:35 | disposition home or self-care (01) ==
LOC: HO.ENCR 08:01
PROVIDERS: PCP Student in an Organized Health Care Education/Training Program; Visit Provider Registered Nurse Diabetes Educator
DX: E10.9 Type 1 diabetes mellitus without complications (principal)

== ENCOUNTER → 2024-11-04 08:00 | Outpatient (BNVA) | payer MEDICAID, SELFPAY | PROVIDERS: PCP Student in an Organized Health Care Education/Training Program; Visit Provider Registered Nurse Diabetes Educator | DX: E10.9 Type 1 diabetes mellitus without complications (principal); Z46.81 Encounter for fitting and adjustment of insulin pump; Z96.41 Presence of insulin pump (external) (internal) | CPT/HCPCS: 99211 ==

== ENCOUNTER 2024-12-07 13:26 | Outpatient (AMB) | payer MEDICAID, SELFPAY ==
--- NOTE | 2024-12-07 13:32 | A.OFFVIS_ITS ---
Vital Signs 12/07/24 13:35 Height 5 ft 8 in Weight 242 lb 1.081 oz BMI 36.8 BP 126/78 Blood Pressure Location Rt brachial Position Sitting Pulse 88 Pulse Source Pulse Oximeter Pulse Oximetry (%) 97 Oxygen Delivery Method Room Air Intake Visit Reasons: T1DM Intake Note: Patient present today to follow up on Type 1 Diabetes Mellitus. Last Diabetic Eye exam: Due, patient is requesting a referral. Last Podiatry Visit: Does not see a Electric Lift Truck Driver Random Glucose: 123 mg/dl Hgb A1C: 7.7% 09/15/2024 Radio Program Checker Required: No Accompanied by: Self / Same As Patient Allergies No Known Allergies (No Known Allergies*) Allergy (Verified 12/07/24 13:36) Medication List - Last Reconciled 12/07/24 by Christo Olvera MD acetone (urine) test (Ketone Urine Test strips) prn nausea, vomiting, illness glucose over 250 blood sugar diagnostic (FreeStyle Lite Strips) As directed qid prn sensor failure, confirm glucose blood-glucose meter (FreeStyle Lite Meter kit) As directed blood-glucose sensor (DexExie G7 Sensor device) As directed insulin degludec (Tresiba FlexTouch U-200 insulin) 38 units (0.19 mL) subcut BEDTIME 30 days insulin glargine 40 units subcut DAILY insulin lispro 14 units (0.14 mL) subcut TID NS lancets (FreeStyle Lancets) 4 times a day prn sensor failure or to confirm glucose dispense as 32 gauge if avail HPI Comments Details: 29 YO male who is seen in f/u for T1DM. The patient last saw Lisa Orellana NP on 09/15/2024. He was seen as an initial consult May 2024 and he was changed from Lantus insulin to Tresiba insulin to smooth out his numbers. He has met with Che ALEXANDER to discuss going on a pump. He is interested in Omnipod. He has had 1 session with the Ghada Akers RD. He needs additional pre pump training prior to ordering pump Labs 08/13/2024 confirmed type 1 C-peptide 0.68 Gada 90 neg islet antibody His partner Raquel is an dewatering filtering supervisor at [facility] [place] Initially diagnosed with T1DM approx at age [age] years old through the ER Was previously followed by [facility] Was initially started on treatment with insulin Current regimen: Tresiba 42 units Humalog 14 units three times daily with meals Dexcom average glucose: 162 14 day continuous glucose monitor report reviewed Glucose Managment indicator 7.2% TIme in ranges: 7 % very high (above 250) 29% high ?(181-250) 63 % in range ?(70-180] 1% low (69-55) Less than 1 % ?very low (below 54) Interpretation ; has some overnight at a.m. hyperglycemia Reports low sugars: in the afternnon occasionally . Not using carb counting Family history of T2DM in father Due for eye exam: 1-2 yrs ago . Needs to make appt Has recent neuropathy : tingling in both feet last foot exam today does not see podiatry No nephropathy, on doron-inhibitor no urine micro avail 06/10/23 eGFR 123 No lipid profile available Diet: Hasn't seen manager mall Weight: stable No diabetes education. [facility] Medical History Type 1 diabetes mellitus Diabetes Surgical History Hx of tooth extraction Family History Mother No problems noted. Father No problems noted. Maternal Aunt History of diabetes mellitus Maternal Grandmother No problems noted. Social History Alcohol intake: current Alcohol intake frequency: does not drink Patient Tobacco Use Status: Never used Tobacco Physical Exam HEENT Other: Absence of Cushingoid features. Absence of acromegalic features. Neck exam reveals nl size thyroid about 15 gms. No thyroid nodules palpable. Heart S1 S2, Reg R/R. No M/R G. Skin exam reveals absence of vitiligo or acanthosis nigricans. No edema Visual exam of foot performed. No ulcerations or open lesions. No inter digit maceration or fissuring. No onychomycosis, no callouses. Sensation intact to monofilament exam. Vibratory sensation is normal with 128 Hz tuning fork. Pulses positive distally Assessment & Plan Assessment & Plan (1) Type 1 diabetes mellitus: Code(s): E10.9 - Type 1 diabetes mellitus without complications Category: Medical Plan: This is a 29-year-old male with a history of type 1 diabetes being treated with basal-bolus insulin with good but less than optimal glycemic control and known microvascular complications namely neuropathy Plan is to increase the Tresiba to 46 units. We will have patient follow up with aquaculture farm manager as he is considering going on a pump. Otherwise follow up in 3 months' time Medications: Changed From insulin degludec (Tresiba FlexTouch U-200 insulin) 38 units (0.19 mL) subcut BEDTIME 30 days 6 mL 6RF To insulin degludec (Tresiba FlexTouch U-200 insulin) 46 units (0.23 mL) subcut BEDTIME 6.9 mL 6RF 30 days Refilled blood-glucose meter (FreeStyle Lite Meter kit) As directed 1 ea 0RF E10.9 - Type 1 diabetes mellitus without complications Coding Level of Care Code Est Pt Level 4 (82095) Complex EM visit Add On G2211 Diagnoses Type 1 diabetes mellitus E10.9
[2024-12-07 13:35] VITALS: BP 126/78; PULSE 88; O2SAT 97; BMI 36.8
[2024-12-07 13:46] LABS: Glucose, Whole Blood 123 mg/dL (60-115)
== END 2024-12-07 13:53 | disposition home or self-care (01) ==
LOC: HO.ENCR 13:27
PROVIDERS: PCP Student in an Organized Health Care Education/Training Program; Visit Provider Internal Medicine Endocrinology, Diabetes & Metabolism
DX: E10.9 Type 1 diabetes mellitus without complications (principal)
CPT/HCPCS: 99214

== ENCOUNTER → 2024-12-07 13:26 | Outpatient (BNVA) | payer OTHER, SELFPAY | PROVIDERS: PCP Student in an Organized Health Care Education/Training Program; Visit Provider Internal Medicine Endocrinology, Diabetes & Metabolism | DX: E10.9 Type 1 diabetes mellitus without complications (principal); Z79.4 Long term (current) use of insulin | CPT/HCPCS: 82947; 99212 ==

== ENCOUNTER 2025-01-20 07:11 | Outpatient (AMB) | payer OTHER, SELFPAY ==
--- NOTE | 2025-01-20 08:29 | MHC.AMDMED ---
Intake Intake Visit Reasons: iLet pump training Director Of Rehabilitative Services Required: Yes Director Of Rehabilitative Services Language: Syrian Accompanied by: Significant Other Allergies No Known Allergies (No Known Allergies*) Allergy (Verified 12/07/24 13:36) [facility] Medical History Type 1 diabetes mellitus Diabetes Surgical History Hx of tooth extraction Family History Mother No problems noted. Father No problems noted. Maternal Aunt History of diabetes mellitus Maternal Grandmother No problems noted. Social History Alcohol intake: current Alcohol intake frequency: does not drink Patient Tobacco Use Status: Never used Tobacco Assessment & Plan Assessment & Plan (1) Type 1 diabetes mellitus: Code(s): E10.9 - Type 1 diabetes mellitus without complications Plan: Patient presents for pump training for iLet pump and CGM training today. The following topics were reviewed today: -Pump therapy basic concepts: Basal/bolus -Device settings: Bluetooth/mobile connection (if applicable), correct date and time, sound volume -CGM settings(if integrated system): CGM graft views and trend arrows, alerts and alarms, Start new sensor Patient instructed to only announce meals that have carbohydrates For the 1st 7 days: Eat meals that have usual amount of carbs for you in announce them as usual Wait at least 4 hours between eating meals with carbs and announcing again If you are eating between meals, low carb snacks are the best option. Announce meal right away when you start eating If you forget and is more than 30 minutes since started eating do not announce Avoid over treating lows, this can cause hyperglycemia, which will initiate pump to deliver correction bolus Always have extra supplies: CGM sensor Supply to refill your insulin cartridge and replace your infusion set Blood glucose and ketone testing supplies Extra insulin Treatment for low blood glucose Emergency contact information Ketone action plan Keep yecenia open on your phone, keep your ilet paired with the yecenia Always sink her data before appointments with your healthcare provider BG run mode: You will go into BG mode if not receiving CGM glucose readings You will be required to enter BG into pump every 4 hours after 72 hours insulin delivery will stop In the 1st week of pump therapy you will need to enter BG every hour after 48 hours without CGM in the 1st week insulin delivery will stop Insulin delivery settings Date, time and weight Instructed patient to only use room temperature insulin, how to load cartridge or fill pod, with insulin. Fill tubing and cannula (if applicable) Inserting infusion set or starting pod Troubleshooting after starting new pod or inserting new insulin set: Occlusion, adhesive tape sensitivity, redness Check BG 2 hours after site change Safety information: Importance of a backup plan, for manual injections, proper prescriptions and emergency supplies ketone strips, and rules for testing for ketones Patient given copy of off insulin plan, patient given copy of ketone action plan and tips for initiating insulin pump therapy handouts in [place] Patient was able to insert insulin set today without difficulty. Patient has significant areas of hypertrophy bilateral on mid abdomen, and on left thigh. Instructed patient to avoid putting insulin delivery set in these areas. Instructed patient if he is injecting insulin to avoid areas as well Patient understands the basic concepts of pump therapy, how to give insulin for meals and snacks, how to troubleshoot for hyper and hypoglycemia. Patient will follow up with [facility] in 1 week Patient will contact [facility] with questions or concerns, patient given IT number to support in any technical issues related to insulin pump Portions of this note were created using voice recognition software, please excuse any words or phrases that may have been misinterpreted. Coding Level of Care Code Est Pt Level 1 (03146) Diagnoses Type 1 diabetes mellitus E10.9
== END 2025-01-20 08:36 | disposition home or self-care (01) ==
LOC: HO.ENCR 07:12
PROVIDERS: PCP Student in an Organized Health Care Education/Training Program; Visit Provider Registered Nurse Diabetes Educator
DX: E10.9 Type 1 diabetes mellitus without complications (principal)

== ENCOUNTER → 2025-01-20 07:11 | Outpatient (BNVA) | payer OTHER, SELFPAY | PROVIDERS: PCP Student in an Organized Health Care Education/Training Program; Visit Provider Registered Nurse Diabetes Educator | DX: E10.9 Type 1 diabetes mellitus without complications (principal) | CPT/HCPCS: 99211 ==

== ENCOUNTER 2025-04-06 10:23 | Outpatient (AMB) | payer OTHER, SELFPAY ==
--- NOTE | 2025-04-06 10:24 | MHC.OFFVIS ---
Vital Signs 04/06/25 10:25 Height 5 ft 8 in Weight 245 lb 13.047 oz BMI 37.4 BP 120/80 Blood Pressure Location Lt brachial Position Sitting Pulse 76 Pulse Source Pulse Oximeter Pulse Oximetry (%) 97 Oxygen Delivery Method Room Air Intake Visit Reasons: T1DM Intake Note: Patient present today to follow up on Type 1 Diabetes Mellitus. Last Diabetic Eye exam: not done Last Podiatry Visit: Does not see a Document Preparation Specialist Random Glucose:218 mg/dl Hgb A1C: 7.1% Accompanied by: Spouse Allergies No Known Allergies (No Known Allergies*) Allergy (Verified 04/06/25 10:25) Medication List - Last Reconciled 04/06/25 by Christo Olvera MD acetone (urine) test (Ketone Urine Test strips) prn nausea, vomiting, illness glucose over 250 blood sugar diagnostic (FreeStyle Lite Strips) As directed qid prn sensor failure, confirm glucose blood-glucose meter (FreeStyle Lite Meter kit) As directed blood-glucose sensor (DexOverblog G7 Sensor device) As directed insulin degludec (Tresiba FlexTouch U-200 insulin) 46 units (0.23 mL) subcut BEDTIME 30 days insulin lispro 18 units (0.18 mL) subcut TID NS insulin lispro (Humalog U-100 Insulin) Infuse up to 140 units per day via insulin pump via continuous subcutaneous infusion; lancets (FreeStyle Lancets) 4 times a day prn sensor failure or to confirm glucose dispense as 32 gauge if avail HPI Comments Details: 29 YO male who is seen in f/u for T1DM. He has met with Che ALEXANDER to discuss going on a pump. He is interested in Omnipod. He has had 1 session with the Ghada [address] RD. He needs additional pre pump training prior to ordering pump Labs 08/13/2024 confirmed type 1 C-peptide 0.68 Gada 90 neg islet antibody His partner Raquel is an master control operator at [facility] [place] Initially diagnosed with T1DM approx at age [age] years old through the ER Was previously followed by [facility] Was initially started on treatment with insulin Currently on iLet pump Meal announcements: He announces 100% of breakfast, 100% of lunch and 97% of dinner as usual. 7% of lunch as more and 3% of lunch is more. Insulin history shows usual breakfast at 13.2 units, usual lunch 12.5 units usual dinner 13.6 units per total daily dose of 78.7 with basal 40.2 units Dexcom download shows 67.7% range with 22.3% hyperglycemia and 7.2% very hypoglycemic and 2.2% hypoglycemic. Most of hypoglycemia as occurring overnight. G mi 7.1% with average glucose of 158 and standard deviation 55 with coefficient of variation 14.7% Interpretation ; has some overnight at a.m. hypoglycemia daily overnight Family history of T2DM in father Due for eye exam 1 1/2 yrs : . 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 [facility] Medical History Type 1 diabetes mellitus Diabetes Surgical History Hx of tooth extraction Family History Mother No problems noted. Father No problems noted. Maternal Aunt History of diabetes mellitus Maternal Grandmother No problems noted. Social History Alcohol intake: current Alcohol intake frequency: does not drink Patient Tobacco Use Status: Never used Tobacco Physical Exam Vital Signs: Last Vital Signs Pulse 76 04/06/25 10:25 BP 120/80 04/06/25 10:25 Pulse Ox 97 04/06/25 10:25 Oxygen Delivery Method Room Air 04/06/25 10:25 BMI result Body Mass Index 37.4 HEENT Other: Absence of Cushingoid features. Absence of acromegalic features. Neck exam reveals nl size thyroid about 15 gms. No thyroid nodules palpable. Heart S1 S2, Reg R/R. No M/R G. Skin exam reveals absence of vitiligo or acanthosis nigricans. No edema Visual exam of foot performed. No ulcerations or open lesions. No inter digit maceration or fissuring. No onychomycosis, no callouses. Sensation intact to monofilament exam. Vibratory sensation is normal with 128 Hz tuning fork. Pulses positive distally Results AMB Hemoglobin A1c AMB Hemoglobin A1c 7.1 % Last Edit by ALEN Smith on 04/06/25 10:50 Results Reviewed Results Reviewed: Laboratory Last Values Glucose (Clinic) 218 mg/dL (60-115) H 04/06/25 10:36 Hgb A1c (Clinic) 7.1 % (4.0-6.0) H 04/06/25 10:49 Assessment & Plan Assessment & Plan (1) Type 1 diabetes mellitus: Code(s): E10.9 - Type 1 diabetes mellitus without complications Category: Medical Plan: This is a 30-year-old male with a history of type 1 diabetes being treated with iLet pump with improving good glycemic control and known microvascular complications namely neuropathy. He is having significant post-dinner hyperglycemia with over-correction leading to hypoglycemia Plan is to have the patient announced dinners as large rather usual for the time being until post-dinner hyperglycemia resolved in which case the patient can then announced dinner as usual. We will have the patient follow up with the nursing educator in 4 weeks and with myself in 3 months. I also made referrals to optho and podiatry Orders: Orders AMB Hemoglobin A1c Today E10.9 - Type 1 diabetes mellitus without complications, Z13.9 - Encounter for screening, unspecified Referrals Ophthalmology Referral E10.9 - Type 1 diabetes mellitus without complications Podiatry Referral E10.9 - Type 1 diabetes mellitus without complications Coding Level of Care Code Est Pt Level 4 (89786) Add On Problem Visit Only Diagnoses Type 1 diabetes mellitus E10.9
[2025-04-06 10:25] VITALS: BP 120/80; PULSE 76; O2SAT 97; BMI 37.4
[2025-04-06 10:42] LABS: Glucose, Whole Blood 218 mg/dL (60-115)
== END 2025-04-06 10:58 | disposition home or self-care (01) ==
LOC: HO.ENCR 10:24
PROVIDERS: PCP Student in an Organized Health Care Education/Training Program; Visit Provider Internal Medicine Endocrinology, Diabetes & Metabolism
DX: Z13.9 Encounter for screening, unspecified (principal); E10.9 Type 1 diabetes mellitus without complications
CPT/HCPCS: 99214; G2211

== ENCOUNTER → 2025-04-06 10:23 | Outpatient (BNVA) | payer OTHER, SELFPAY | PROVIDERS: PCP Student in an Organized Health Care Education/Training Program; Visit Provider Internal Medicine Endocrinology, Diabetes & Metabolism | DX: E10.9 Type 1 diabetes mellitus without complications (principal) | CPT/HCPCS: 82947; 83036; 99212 ==